=== PATIENT | female | born 1995 | race Caucasian/White ===

== ENCOUNTER 2018-04-25 16:03 | Emergency (ER) | payer OTHER ==
--- NOTE | 2018-04-25 17:09 | ER ---
Nurse's Notes [facility] Name: Millie Michaud Age: 22 yrs Sex: Female : 1995 Arrival Date: 04/25/2018 Time: 16:05 Bed Waiting Private MD: Shamika Weeks Diagnosis: Presentation: 04/25 16:14 Presenting complaint: Patient states: "I've had a dull lower abdominal pain for the aj1 past couple days, but today I went to the bathroom and right after its been immense pain. I can't get anything to let it up. It feels like something ruptured to me" Denies N/V/D. Reports pelvic pain, denies dysuria. Reports urinary frequency. Denies abnormal vaginal discharge. Transition of care: patient was not received from another setting of care. Onset of symptoms was April 25, 2018. Risk Assessment: Do you want to hurt yourself or someone else? Patient reports no desire to harm self or others. Initial Sepsis Screen: Does the patient meet any 2 criteria? No. Patient's initial sepsis screen is negative. Does the patient have a suspected source of infection? Yes: Acute abdominal pain. Care prior to arrival: None. 16:14 Method Of Arrival: Ambulatory aj1 16:14 Acuity: EMILE 3 aj1 16:48 Note Patient left, states that she is feeling better. aj1 Triage Assessment: 16:16 General: Appears in no apparent distress. comfortable, Behavior is calm, cooperative, aj1 appropriate for age. Pain: Complains of pain in pelvis Pain currently is 8 out of 10 on a pain scale. Neuro: Level of Consciousness is awake, alert, obeys commands. Cardiovascular: Patient's skin is warm and dry. Respiratory: Airway is patent Respiratory effort is even, unlabored, Respiratory pattern is regular, symmetrical. GI: Reports lower abdominal pain. 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 - Social history:: Smoking status: Patient uses tobacco products, smokes one-half pack cigarettes per day. - Ebola Screening: : Patient denies travel to an Ebola-affected area in the 21 days before illness onset. Vital Signs: 16:16 BP 116 / 72; Pulse 82; Resp 18; Temp 97.8; Pulse Ox 100% on R/A; Weight 42.18 kg (R); aj1 Height 5 ft. 2 in. (157.48 cm) (R); Pain 8/10; 16:16 Body Mass Index 17.01 (42.18 kg, 157.48 cm) aj1 ED Course: 16:05 Patient arrived in ED. mr 16:06 Shamika Weeks MD is Private Physician. mr 16:16 Triage completed. aj1 16:16 Arm band placed on Patient placed in waiting room, Patient notified of wait time. aj1 17:01 Vilma Gaona FNP-C is PHCP. kb 17:01 Bobby Monaco MD is Attending Physician. kb 17:07 Shiela Reza FNP-C is PHCP. snw 17:07 Bobby Monaco MD is Attending Physician. snw Administered Medications: No medications were administered Outcome: 17:08 Eloped from waiting room. aj1 17:09 Patient left the ED. aj1 Signatures: Vilma Gaona FNP-C FNP-Ckb Johnson, Angela, RN RN aj1 Shiela Reza FNP-C FNP-Csnw Tyler Tona mr
== END 2018-04-25 17:09 | disposition left against medical advice (07) ==
LOC: ER 16:03
DX: Z53.21 Procedure and treatment not carried out due to patient leaving prior to being seen by health care provider (principal)
CPT/HCPCS: 99281

== ENCOUNTER 2024-01-15 09:27 | Emergency (ER) | payer BC ==
--- NOTE | 2024-01-15 10:21 | RAD REPORT ---
EXAM DESCRIPTION: RAD - Foot Right 3 View - 01/15/2024 10:13 am CLINICAL HISTORY: PAIN COMPARISON: FOOT W OBLIQUES dated 08/09/2010; FOOT W OBLIQUES dated 11/29/2005 FINDINGS/IMPRESSION: No acute fracture. No malalignment. Mild degenerative changes are present at th e first MTP joint.
--- NOTE | 2024-01-15 10:29 | EDPHYS ---
Physician Documentation [facility] Name: Millie Michaud Age: 28 yrs Sex: Female : 1995 Arrival Date: 01/15/2024 Time: 09:27 Bed 19 Private MD: ED Physician Cirilo Marcus HPI: 01/14 09:44 This 28 yrs old Female presents to ER via Unassigned with complaints of Foot Injury. rt 09:44 This presents to the ED with an injury to the right foot. Patient states that she rt accidentally kicked a TV stand 2 days ago, had pain to that area. States that she felt better yesterday but did do a lot of walking when she was shopping at a mall. The patient states that the pain did worsen today, she took Tylenol at about 4 AM to some relief. States that the pain has improved and tolerable at this point. Symptoms are moderate in severity, aching in nature, nonradiating, no other aggravating or alleviating factors.. 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 - Infectious Disease History:: Denies. - Family history:: not pertinent. - Social history:: Smoking status: Reported history of juuling and/or vaping. ROS: 09:44 MS/extremity: Positive for pain, Negative for deformity, rt 09:44 Constitutional: Negative for fever, chills, and weight loss, Skin: Negative for injury, rash, and discoloration, Neuro: Negative for headache, weakness, numbness, tingling, and seizure, Psych: Negative for depression, anxiety, suicide ideation, homicidal ideation, and hallucinations, Exam: 09:44 Constitutional: This is a well developed, well nourished patient who is awake, alert, rt and in no acute distress. Skin: Warm, dry with normal turgor. Normal color with no rashes, no lesions, and no evidence of cellulitis. Neuro: Awake and alert, GCS 15, oriented to person, place, time, and situation. Cranial nerves II-XII grossly intact. Motor strength 5/5 in all extremities. Sensory grossly intact. Cerebellar exam normal. Normal gait. Psych: Awake, alert, with orientation to person, place and time. Behavior, mood, and affect are within normal limits. 09:44 Musculoskeletal/extremity: Contusion to the dorsum of the foot, tenderness to the midfoot, digits 3 through 5 without deformity. Pulses, motor, sensation intact. Vital Signs: 09:38 BP 117 / 71; Pulse 78; Resp 18 S; Temp 97.6(TE); Pulse Ox 99% on R/A; Weight 52.16 kg aa5 (R); Height 5 ft. 1 in. (R); 10:00 BP 117 / 71; Pulse 81; Resp 18; Temp 98; Pulse Ox 99% on R/A; kj2 10:34 BP 103 / 61; Pulse 70; Resp 18; Pulse Ox 100% on R/A; kj2 09:38 Body Mass Index 21.73 (52.16 kg, 154.94 cm) aa5 MDM: 09:39 Patient medically screened. rt 10:39 Differential diagnosis: fracture, sprain. Data reviewed: vital signs, nurses notes, rt radiologic studies. Independent interpretation of the following test(s) in the Emergency Department X-Ray: My interpretation is No fracture seen on interpretation of x-ray images. Counseling: I had a detailed discussion with the patient and/or guardian regarding the historical points, exam findings, and any diagnostic results supporting the discharge/admit diagnosis, radiology results, the need for outpatient follow up. 01/14 09:43 Order name: Foot Right 3 View XRAY; Complete Time: 10:22 rt Administered Medications: No medications were administered Disposition Summary: 01/15/24 10:28 Discharge Ordered Notes: Location: Home rt Problem: new rt Symptoms: are unchanged rt Condition: Stable rt Diagnosis - Pain in right foot rt Followup: rt - With: Private Physician - When: 2 - 3 days - Reason: Discharge Instructions: - Discharge Summary Sheet rt - Foot Pain rt Forms: - Medication Reconciliation Form rt - Antibiotic Education rt - Prescription Opioid Use rt - Patient Portal Instructions rt - Leadership Thank You Letter rt Signatures: Dispatcher [employer] Britta Pulliam RN RN aa5 [place], Cirilo, MD MD rt
--- NOTE | 2024-01-15 10:29 | ER ---
Nurse's Notes [facility] Name: Millie Michaud Age: 28 yrs Sex: Female : 1995 Arrival Date: 01/15/2024 Time: 09:27 Bed 19 Private MD: Diagnosis: Pain in right foot Presentation: 01/14 09:38 Chief complaint: Patient states: "I slammed my foot on a TV stand a few days ago". Pt aa5 c/o pain to right foot. 09:38 Method Of Arrival: Ambulatory aa5 09:38 Coronavirus screen: At this time, the client does not indicate any symptoms associated aa5 with coronavirus-19. Ebola Screen: Patient denies travel to an Ebola-affected area in the 21 days before illness onset. Initial Sepsis Screen: Does the patient meet any 2 criteria? No. Patient's initial sepsis screen is negative. Does the patient have a suspected source of infection? No. Patient's initial sepsis screen is negative. Risk Assessment: Do you want to hurt yourself or someone else? Patient reports no desire to harm self or others. Onset of symptoms was January 2024. 09:38 Acuity: EMILE 4 aa5 Triage Assessment: 10:32 General: Appears in no apparent distress. uncomfortable. General: Behavior is calm, kj2 cooperative. Pain: Complains of pain in right foot Pain currently is 8 out of 10 on a pain scale. Injury Description: right foot. 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 - Infectious Disease History:: Denies. - Family history:: not pertinent. - Social history:: Smoking status: Reported history of juuling and/or vaping. Screenin:01 [facility] ED Fall Risk Assessment (Adult) History of falling in the last 3 months, kj2 including since admission No falls in past 3 months (0 pts) Confusion or Disorientation No (0 pts) Intoxicated or Sedated No (0 pts) Impaired Gait No (0 pts) Mobility Assist Device Used No (0 pt) Altered Elimination No (0 pt) Score/Fall Risk Level 0 - 2 = Low Risk. Abuse screen: Denies threats or abuse. Denies injuries from another. Nutritional screening: No deficits noted. Tuberculosis screening: No symptoms or risk factors identified. Assessment: 09:58 General: Appears in no apparent distress. uncomfortable, Behavior is calm, cooperative. kj2 Pain: Complains of pain in right foot Pain currently is 8 out of 10 on a pain scale. Neuro: Level of Consciousness is awake, alert, Oriented to person, place, time, situation. Cardiovascular: Capillary refill Patient's skin is warm and dry. Respiratory: Airway is patent Respiratory effort is even, unlabored. GI: No deficits noted. : No deficits noted. Musculoskeletal: Parent/caregiver report the patient having pain in right foot. Vital Signs: 09:38 BP 117 / 71; Pulse 78; Resp 18 S; Temp 97.6(TE); Pulse Ox 99% on R/A; Weight 52.16 kg aa5 (R); Height 5 ft. 1 in. (R); 10:00 BP 117 / 71; Pulse 81; Resp 18; Temp 98; Pulse Ox 99% on R/A; kj2 10:34 BP 103 / 61; Pulse 70; Resp 18; Pulse Ox 100% on R/A; kj2 09:38 Body Mass Index 21.73 (52.16 kg, 154.94 cm) aa5 ED Course: 09:31 Patient arrived in ED. mg5 09:32 Cirilo Marcus MD is Attending Physician. rt 09:38 Arm band placed on. aa5 09:47 Triage completed. aa5 09:51 Rosie Wu, RN is Primary Nurse. db 09:53 Zenobia Miller, RN is Primary Nurse. kj2 10:02 Patient has correct armband on for positive identification. Bed in low position. Call kj2 light in reach. Adult w/ patient. Provided Education on: call light, fall precautions. 10:03 No provider procedures requiring assistance completed. kj2 10:15 Foot Right 3 View XRAY In Process Unspecified. EDMS 10:34 Patient did not have IV access during this emergency room visit. kj2 Administered Medications: No medications were administered Medication: 10:01 VIS not applicable for this client. kj2 Outcome: 10:28 Discharge ordered by . rt 10:33 Condition: stable kj2 10:33 Discharge instructions given to patient, family, Instructed on discharge instructions, follow up and referral plans. Demonstrated understanding of instructions, follow-up care, 10:34 Discharged to home ambulatory, with family, kj2 10:39 Patient left the ED. kj2 Signatures: Dispatcher [employer] EDBritta Toledo RN RN aa5 Rosie Wu RN RN Cirilo Bridges MD MD rt Shireen Gilliland 5 Zenobia Miller, WILBER RN kj2
[2024-01-15 10:46] VITALS: TEMP 98
[2024-01-15 10:47] VITALS: BP 103/61; O2SAT 100
== END 2024-01-15 10:39 | disposition home or self-care (01) ==
LOC: ER 09:27
DX: M79.671 Pain in right foot (principal); S90.31XA Contusion of right foot, initial encounter
CPT/HCPCS: 99283